=== PATIENT | male | born 1935 | race Two or more races ===

== ENCOUNTER 2020-10-11 09:03 | Inpatient (IN) | payer OTHER ==
[~2020-10-11] VITALS: Ht 175.3 cm; Wt 84.4 kg
--- NOTE | 2020-10-11 09:03 | NUR ---
PT MYRON 89 FROM [facility]. C/O AGGRESSIVE BEHAVIOR TOWARDS STAFF. PT IS AAOX4, NOT IN RESPIRATORY DISTRESS, V/S STABLE, KEPT RESTED AND COMFORTABLE. WILL CONTINUE TO MONITOR.
--- NOTE | 2020-10-11 09:17 | NUR ---
PT SEEN AND EXAMINED BY .
[2020-10-11] MEDS ORDERED: OLANZAPINE 5 MG TABLET ONE (09:27)
[2020-10-11] MEDS ORDERED: OLANZAPINE 5 MG TABLET PO ONE (09:30)
[2020-10-11 10:15] LABS: BASOPHILS # (AUTO) 0.1 /CMM (0.0-0.2); BASOPHILS % (AUTO) 1.5 % (0.0-2.0); EOSINOPHILS % (AUTO) 7.7 % (0.0-6.0); HEMATOCRIT 37 % (39-51); HEMOGLOBIN 12.1 g/dL (13.5-17.5); LYMPHOCYTES # (AUTO) 1.4 /CMM (0.8-4.8); LYMPHOCYTES % (AUTO) 30.6 % (20.0-44.0); MEAN CORPUSCULAR HGB CONC 33 g/dl (31.0-36.0); MEAN CORPUSCULAR VOLUME 96 fL (80-96); MONOCYTES # (AUTO) 0.4 /CMM (0.1-1.30); MONOCYTES % (AUTO) 9.8 % (2.0-12.0); NEUTROPHILS # (AUTO) 2.3 /CMM (1.8-8.9); NEUTROPHILS % (AUTO) 50.4 % (43.0-81.0); PLATELET COUNT (AUTO) 185 /CMM (150-450); RED BLOOD CELL COUNT(AUTO) 3.83 MIL/uL (4.5-6.0); WHITE BLOOD COUNT (AUTO) 4.5 K/uL (4.3-11.0)
[2020-10-11 10:22] LABS: CALCIUM, SERUM 9.8 mg/dL (8.5-10.1); CARBON DIOXIDE 31 mmol/L (21-32); CHLORIDE 107 mmol/L (98-107); CREATININE 0.9 mg/dL (0.6-1.3); GLUCOSE 98 mg/dL (74-106); POTASSIUM 4.4 mmol/L (3.5-5.1); SODIUM SERUM 144 mmol/L (136-145); UREA NITROGEN, BLOOD 20 mg/dL (7-18)
[2020-10-11 10:28] LABS: ALANINE AMINOTRANSFERASE 20 U/L (12-78); ALBUMIN 3.3 g/dL (3.4-5.0); ALCOHOL, BLOOD < 3 mg/dL (0-0); ALKALINE PHOSPHATASE 74 U/L (46-116); ASPARTATE AMINOTRANSFERASE 35 U/L (15-37); BILIRUBIN,DIRECT 0.2 mg/dL (0.0-0.2); BILIRUBIN,TOTAL 0.8 mg/dL (0.2-1.0); TOTAL PROTEIN, SERUM 7.7 g/dL (6.4-8.2)
[2020-10-11 10:33] LABS: ACETAMINOPHEN 0 ug/ml (10-30)
[2020-10-11] MEDS ORDERED: HYDR-500 PO (10:51)
[2020-10-11] MEDS ORDERED: QUET25TA PO (10:51)
--- NOTE | 2020-10-11 11:00 | NUR ---
URINE SAMPLE COLLECTED AND SENT TO LAB
[2020-10-11 11:46] LABS: BILIRUBIN,URINE SMALL (NEGATIVE); COLOR,URINE DARK YELLOW (YELLOW); LEUKOCYTE ESTERASE ,URINE NEGATIVE (NEGATIVE); NITRITE, URINE NEGATIVE (NEGATIVE); PH,URINE 6.5 (5.0-8.0); PROTEIN,URINE NEGATIVE (NEGATIVE); UGLUCOSE NEGATIVE (NEGATIVE)
[2020-10-11] MEDS ORDERED: CALC0.253 PO (12:10)
[2020-10-11] MEDS ORDERED: FINA5TAB11 PO (12:10)
[2020-10-11] MEDS ORDERED: IBUP-1953 PO (12:10)
[2020-10-11] MEDS ORDERED: OMEP20CA15 PO (12:10)
[2020-10-11] MEDS ORDERED: ASPI-1169 PO (12:10)
[2020-10-11] MEDS ORDERED: DONE10TA44 PO (12:10)
[2020-10-11] MEDS ORDERED: FURO-145 PO (12:10)
[2020-10-11] MEDS ORDERED: LISI2.5T2 PO (12:10)
[2020-10-11] MEDS ORDERED: GABA-532 PO (12:10)
[2020-10-11] MEDS ORDERED: DOCU-141 PO (12:10)
[2020-10-11] MEDS ORDERED: PHEN26CR2 RC (12:10)
--- NOTE | 2020-10-11 12:21 | NUR ---
ANDREA SHOEMAKER [phone]
[2020-10-11 12:29] LABS: BACTERIA,URINE Rare /HPF (None Seen); CALCIUM OXALATE CRYSTALS,UR Moderate /HPF (None Seen); MUCUS,URINE Moderate /LPF (None Seen); SQUAMOUS EPITHELIAL CELL,UR Rare /HPF (None Seen)
--- NOTE | 2020-10-11 12:36 | NUR ---
GOING TO [facility]
--- NOTE | 2020-10-11 13:05 | NUR ---
RAPID COVID SWAB DONE AND SENT TO LAB
--- NOTE | 2020-10-11 13:12 | NUR ---
PLANT OPERATOR/SHIFT SUPERVISOR PURA BAUMAN AT BEDSIDE
--- NOTE | 2020-10-11 13:45 | NUR ---
PLACED ON 5150 HOLD BY PURA LATHAM FOR DTO AND GRAVELY DISABLED
--- NOTE | 2020-10-11 14:04 | NUR ---
RECEIVED RESULT FROM MAIN LAB: RAPID COVID NEGATIVE
--- NOTE | 2020-10-11 14:40 | NUR ---
REPORT GIVEN TO AIDA AU OF [facility]
[2020-10-11 16:00] VITALS: BP 154/96
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
[2020-10-11] MEDS ORDERED: BLOOD SUGAR DIAGNOSTIC 1 EACH STRIP IN ONE (16:30)
[2020-10-11] MEDS ORDERED: clonazePAM 0.5 MG TABLET PO PRN (16:30)
[2020-10-11] MEDS ORDERED: MAGNESIUM HYDROXIDE 30 ML UDC PO PRN (16:30)
[2020-10-11] MEDS ORDERED: ACETAMINOPHEN 325 MG TABLET PO PRN (16:30)
[2020-10-11] MEDS ORDERED: MAG HYDROX/AL HYDROX/SIMETH 30 ML UDC PO PRN (16:30)
--- NOTE | 2020-10-11 18:15 | NUR ---
RN NOTES PT AWAKE, SITTING IN BED, ALERT AND ABLE TO MAKE NEEDS KNOWN, MEDICATIONS GIVEN ORDERED, ATE DINNER, WITH GOOD APPETITE, CALM AT THIS TIME, NEEDS ATTENDED.
[2020-10-11 20:15] VITALS: BP 126/75
[2020-10-11 20:21] VITALS: BP 126/73
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
[2020-10-11] MEDS: GABAPENTIN 100 MG CAPSULE PO SCH (23:30)
--- NOTE | 2020-10-11 23:44 | NUR ---
CALLED [facility] & REQUESTED TO VERIFY ALL RECONCILED MEDS
--- NOTE | 2020-10-12 00:11 | NUR ---
RN NOTE: REFUSED GABAPENTIN PATIENT REFUSED GABAPENTIN 300 MG SCHEDULED DESPITE OF RISKS & BENEFITS EXPLANATIONS & PATIENT INFORMED THE NURSE NOT TO BOTHER HIM WHILE HE IS ASLEEP OR TRYING TO ASLEEP. CONTINUING TO MONITOR.
--- NOTE | 2020-10-12 02:30 | NUR ---
RN NOTE: PATIENT IS SLEEPING INTERMITTENTLY, RESTORIL WAS TAKEN OUT & OFFERED TO THE PT FOR INSOMNIA, BUT PATIENT STATED," I AM DOING OK, I DON'T NEED ANYTHING RIGHT NOW," PATIENT IS IN BED & WILL CONTINUE TO MONITOR.
[2020-10-12 07:27] LABS: CHOLESTEROL 168 mg/dL (<200); HDL CHOLESTEROL 77 mg/dL (40-60); LDL 84 mg/dL (0-99); TRIGLYCERIDES 47 mg/dL (30-150)
[2020-10-12] MEDS ORDERED: OMEPRAZOLE 20 MG CAPSULE.DR PO SCH (07:30)
[2020-10-12 07:49] LABS: ALBUMIN 3.3 g/dL (3.4-5.0); BILIRUBIN,TOTAL 0.7 mg/dL (0.2-1.0); CALCIUM, SERUM 9.6 mg/dL (8.5-10.1); CREATININE 0.8 mg/dL (0.6-1.3); POTASSIUM 4.1 mmol/L (3.5-5.1); TOTAL PROTEIN, SERUM 7.8 g/dL (6.4-8.2)
[2020-10-12 08:00] VITALS: BP 137/73
[2020-10-12] MEDS: ASPIRIN 81 MG TAB.CHEW PO SCH (08:48)
[2020-10-12] MEDS: FINASTERIDE (5 MG) 5 MG TABLET PO SCH (08:48)
[2020-10-12] MEDS: DOCUSATE SODIUM 100 MG CAPSULE PO SCH (08:48)
[2020-10-12] MEDS: GABAPENTIN 100 MG CAPSULE PO SCH ×3 (08:48→16:09)
[2020-10-12] MEDS: LISINOPRIL (5MG) 5 MG TABLET PO SCH (08:48)
[2020-10-12] MEDS: FUROSEMIDE 20 MG TABLET PO SCH (08:48)
[2020-10-12] MEDS: CALCITRIOL 0.25 MCG CAPSULE PO SCH (08:49)
[2020-10-12] MEDS: PANTOPRAZOLE 40 MG TABLET.DR PO SCH (11:50)
[2020-10-12] MEDS: QUETIAPINE FUMARATE 25 MG TABLET PO SCH ×2 (11:50→16:09)
[2020-10-12 16:00] VITALS: BP 118/66
[2020-10-12 20:01] VITALS: BP 115/66
[2020-10-12 20:02] VITALS: BP 115/66
--- NOTE | 2020-10-12 20:32 | NUR ---
RN NOTE SNACK GIVEN TO THE PATIENT & TOLERATED WELL.
[2020-10-12] MEDS: DONEPEZIL 5 MG TABLET PO SCH (21:37)
[2020-10-13 08:00] VITALS: BP 137/74
[2020-10-13] MEDS: PANTOPRAZOLE 40 MG TABLET.DR PO SCH (08:02)
[2020-10-13] MEDS: ASPIRIN 81 MG TAB.CHEW PO SCH (08:24)
[2020-10-13] MEDS: LISINOPRIL (5MG) 5 MG TABLET PO SCH (08:24)
[2020-10-13] MEDS: FINASTERIDE (5 MG) 5 MG TABLET PO SCH (08:24)
[2020-10-13] MEDS: QUETIAPINE FUMARATE 25 MG TABLET PO SCH ×2 (08:24→16:43)
[2020-10-13] MEDS: GABAPENTIN 100 MG CAPSULE PO SCH ×3 (08:24→16:43)
[2020-10-13] MEDS: DOCUSATE SODIUM 100 MG CAPSULE PO SCH (08:24)
[2020-10-13] MEDS: CALCITRIOL 0.25 MCG CAPSULE PO SCH (08:28)
[2020-10-13] MEDS: FUROSEMIDE 20 MG TABLET PO SCH (08:42)
[2020-10-13 16:00] VITALS: BP 103/61
--- NOTE | 2020-10-13 16:15 | NUR ---
Phone call: SW spoke to the (Carlos Ash -[phone]) regarding the pt and discharge plan. The would like the pt return back home once medically discharged from the hospital. Plan: SW will follow up as needed
--- NOTE | 2020-10-13 16:29 | NUR ---
Initial Discharge Plan: Pt currently resides at [facility], [address] [place] [address], [place], [address] [phone]). Pt has stated he would like to be discharged back to home with the at [address] [place] [address] [address], [place]. [address]. SW also spoke with the (Josselyn Ash, ) and she would like the pt to return to the house. SW will discharge back to current living. FALGUNI will work with the pt and the MD appropriate discharged planning. SW will form a safe and proper discharge plan.
[2020-10-13 20:20] VITALS: BP 100/62
[2020-10-13] MEDS: DONEPEZIL 5 MG TABLET PO SCH (21:23)
[2020-10-14 08:00] VITALS: BP 123/68
[2020-10-14] MEDS: PANTOPRAZOLE 40 MG TABLET.DR PO SCH (08:11)
[2020-10-14] MEDS: LISINOPRIL (5MG) 5 MG TABLET PO SCH (08:28)
[2020-10-14] MEDS: QUETIAPINE FUMARATE 25 MG TABLET PO SCH ×2 (08:28→16:49)
[2020-10-14] MEDS: GABAPENTIN 100 MG CAPSULE PO SCH ×3 (08:28→16:49)
[2020-10-14] MEDS: FINASTERIDE (5 MG) 5 MG TABLET PO SCH (08:28)
[2020-10-14] MEDS: DOCUSATE SODIUM 100 MG CAPSULE PO SCH (08:28)
[2020-10-14] MEDS: FUROSEMIDE 20 MG TABLET PO SCH (08:28)
[2020-10-14] MEDS: ASPIRIN 81 MG TAB.CHEW PO SCH (08:28)
[2020-10-14] MEDS: CALCITRIOL 0.25 MCG CAPSULE PO SCH (12:20)
[2020-10-14 16:00] VITALS: BP 120/61
[2020-10-14 20:00] VITALS: BP 116/58
[2020-10-14] MEDS: DONEPEZIL 5 MG TABLET PO SCH (21:46)
[2020-10-14] MEDS: QUETIAPINE FUMARATE 100 MG TABLET PO SCH (21:46)
[2020-10-14] MEDS: TEMAZEPAM 7.5 MG CAPSULE PO PRN (22:47)
[2020-10-15] MEDS: PANTOPRAZOLE 40 MG TABLET.DR PO SCH (07:59)
[2020-10-15 08:00] VITALS: BP 112/70
[2020-10-15] MEDS: QUETIAPINE FUMARATE 25 MG TABLET PO SCH ×2 (08:00→16:33)
[2020-10-15] MEDS: DOCUSATE SODIUM 100 MG CAPSULE PO SCH (08:00)
[2020-10-15] MEDS: ASPIRIN 81 MG TAB.CHEW PO SCH (08:00)
[2020-10-15] MEDS: FUROSEMIDE 20 MG TABLET PO SCH (08:00)
[2020-10-15] MEDS: FINASTERIDE (5 MG) 5 MG TABLET PO SCH (08:00)
[2020-10-15] MEDS: GABAPENTIN 100 MG CAPSULE PO SCH ×3 (08:00→16:32)
[2020-10-15] MEDS: LISINOPRIL (5MG) 5 MG TABLET PO SCH (08:01)
[2020-10-15] MEDS: CALCITRIOL 0.25 MCG CAPSULE PO SCH (08:07)
[2020-10-15 16:00] VITALS: BP 108/70
[2020-10-15 20:15] VITALS: BP 152/86
[2020-10-15] MEDS: DONEPEZIL 5 MG TABLET PO SCH (22:31)
[2020-10-15] MEDS: QUETIAPINE FUMARATE 100 MG TABLET PO SCH (22:31)
[2020-10-15] MEDS: TEMAZEPAM 7.5 MG CAPSULE PO PRN (22:35)
--- NOTE | 2020-10-15 22:36 | NUR ---
[facility]PS RN NOTES: PATIENT REQUESTED FOR SLEEP MEDICATION D/T INSOMNIA. RESTORIL 7.5MG/1TAB GIVEN PO PRN ORDERED. WILL CONTINUE TO MONITOR.
--- NOTE | 2020-10-16 06:40 | NUR ---
[facility] RN CLOSING NOTES: PATIENT IS CURRENTLY SLEEPING. SLEPT 7HRS THIS SHIFT. NO BEHAVIORAL ISSUES THIS SHIFT. NO S/S OF DISTRESS. RESPIRATION EVEN AND UNLABORED WITH EQUAL RISE AND FALL OF THE CHEST ON ROOM AIR. ALL PATIENT CARE NEEDS HAVE BEEN MET ANTICIPATED. WILL CONTINUE TO MONITOR FOR SAFETY, MOOD AND BEHAVIOR AND ENDORSE TO AM SHIFT.
[2020-10-16 08:00] VITALS: BP 104/52
[2020-10-16] MEDS: GABAPENTIN 100 MG CAPSULE PO SCH ×3 (09:21→17:19)
[2020-10-16] MEDS: ASPIRIN 81 MG TAB.CHEW PO SCH (09:22)
[2020-10-16] MEDS: FUROSEMIDE 20 MG TABLET PO SCH (09:22)
[2020-10-16] MEDS: QUETIAPINE FUMARATE 25 MG TABLET PO SCH ×2 (09:22→17:18)
[2020-10-16] MEDS: DOCUSATE SODIUM 100 MG CAPSULE PO SCH (09:22)
[2020-10-16] MEDS: PANTOPRAZOLE 40 MG TABLET.DR PO SCH (09:22)
[2020-10-16] MEDS: FINASTERIDE (5 MG) 5 MG TABLET PO SCH (09:23)
[2020-10-16] MEDS: LISINOPRIL (5MG) 5 MG TABLET PO SCH (09:23)
[2020-10-16] MEDS: CALCITRIOL 0.25 MCG CAPSULE PO SCH (09:24)
[2020-10-16 16:00] VITALS: BP 108/70
--- NOTE | 2020-10-16 18:00 | NUR ---
quiet,isolative and med compliant.
[2020-10-16] MEDS: POLYVINYL ALCOHOL 15 ML BOTTLE EACHEYE PRN (19:04)
--- NOTE | 2020-10-16 19:04 | NUR ---
rn administered clear eyes for his dry eyes.
[2020-10-16 19:54] VITALS: BP 109/67
[2020-10-16] MEDS: DONEPEZIL 5 MG TABLET PO SCH (21:52)
[2020-10-16] MEDS: QUETIAPINE FUMARATE 100 MG TABLET PO SCH (21:55)
[2020-10-16] MEDS: TEMAZEPAM 7.5 MG CAPSULE PO PRN (23:10)
--- NOTE | 2020-10-17 06:32 | NUR ---
[facility] RN CLOSING NOTES: PATIENT AWAKE, ALERT AND ORIENTED X2. AMBULATING IN HALLWAY. SLEPT 4HRS THIS SHIFT. NO BEHAVIORAL ISSUES THIS SHIFT. MEDICATION COMPLIANT. NO S/S OF DISTRESS. RESPIRATION EVEN AND UNLABORED WITH EQUAL RISE AND FALL OF THE CHEST ON ROOM AIR. ALL PATIENT CARE NEEDS HAVE BEEN MET ANTICIPATED. WILL CONTINUE TO MONITOR FOR SAFETY, MOOD AND BEHAVIOR AND ENDORSE TO AM SHIFT.
[2020-10-17] MEDS: PANTOPRAZOLE 40 MG TABLET.DR PO SCH (07:30)
[2020-10-17 08:00] VITALS: BP 136/88
[2020-10-17] MEDS: CALCITRIOL 0.25 MCG CAPSULE PO SCH (09:29)
[2020-10-17] MEDS: DOCUSATE SODIUM 100 MG CAPSULE PO SCH (09:29)
[2020-10-17] MEDS: GABAPENTIN 100 MG CAPSULE PO SCH ×3 (09:29→16:13)
[2020-10-17] MEDS: ASPIRIN 81 MG TAB.CHEW PO SCH (09:29)
[2020-10-17] MEDS: FUROSEMIDE 20 MG TABLET PO SCH (09:30)
[2020-10-17] MEDS: QUETIAPINE FUMARATE 25 MG TABLET PO SCH ×2 (09:30→16:13)
[2020-10-17] MEDS: LISINOPRIL (5MG) 5 MG TABLET PO SCH (09:31)
[2020-10-17] MEDS: FINASTERIDE (5 MG) 5 MG TABLET PO SCH (09:31)
[2020-10-17 16:00] VITALS: BP 116/83
[2020-10-17 20:48] VITALS: BP 133/80
[2020-10-17] MEDS: QUETIAPINE FUMARATE 100 MG TABLET PO SCH (21:31)
[2020-10-17] MEDS: DONEPEZIL 5 MG TABLET PO SCH (21:31)
--- NOTE | 2020-10-18 06:31 | NUR ---
[facility] RN CLOSING NOTES: PATIENT AWAKE, ALERT AND ORIENTED X2. REFUSED WEEKLY SKIN ASSESSMENT, PER PATIENT HIS SKIN IS GOOD. PATIENT SLEPT 7HRS THIS SHIFT. NO BEHAVIORAL ISSUES THIS SHIFT. MEDICATION COMPLIANT. NO S/S OF DISTRESS. RESPIRATION EVEN AND UNLABORED WITH EQUAL RISE AND FALL OF THE CHEST ON ROOM AIR. ALL PATIENT CARE NEEDS HAVE BEEN MET ANTICIPATED. WILL CONTINUE TO MONITOR FOR SAFETY, MOOD AND BEHAVIOR AND ENDORSE TO AM SHIFT.
[2020-10-18] MEDS: PANTOPRAZOLE 40 MG TABLET.DR PO SCH (07:50)
[2020-10-18 08:00] VITALS: BP 114/61
[2020-10-18] MEDS: ASPIRIN 81 MG TAB.CHEW PO SCH (08:25)
[2020-10-18] MEDS: LISINOPRIL (5MG) 5 MG TABLET PO SCH (08:25)
[2020-10-18] MEDS: GABAPENTIN 100 MG CAPSULE PO SCH ×3 (08:25→16:18)
[2020-10-18] MEDS: DOCUSATE SODIUM 100 MG CAPSULE PO SCH (08:25)
[2020-10-18] MEDS: QUETIAPINE FUMARATE 25 MG TABLET PO SCH ×2 (08:26→16:18)
[2020-10-18] MEDS: FINASTERIDE (5 MG) 5 MG TABLET PO SCH (08:26)
[2020-10-18] MEDS: FUROSEMIDE 20 MG TABLET PO SCH (08:26)
[2020-10-18] MEDS: CALCITRIOL 0.25 MCG CAPSULE PO SCH (08:49)
--- NOTE | 2020-10-18 11:41 | NUR ---
Family Contact: SW spoke with pts , Josselyn Ash ([phone]), who stated that she wanted to know when the pt was going to be discharged and the SW explained the probable cause hearing and informed her that the SW will call her back after the hearing because that will determine whether or not the pt will be discharged today.
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
--- NOTE | 2020-10-18 12:49 | NUR ---
Probable Cause Hearing: Pts 5250 hold was upheld for grave disability.
--- NOTE | 2020-10-18 13:20 | NUR ---
Family Contact: SW called the pts , Josselyn Ash ([phone]), and informed her that the pts hearing was upheld and as soon as the pt has a discharge date she will be informed.
--- NOTE | 2020-10-18 15:37 | NUR ---
Family Contact: FALGUNI called the pts , Josselyn Ash ([phone]), and informed her that the pt will be discharged back home on . Pts stated that she does not drive and they do not have anyone to pick him up. SW stated that she will call her back to arrange the discharge on Sunday through [facility].
[2020-10-18 16:00] VITALS: BP 104/61
[2020-10-18] MEDS: IBUPROFEN 400 MG TABLET PO PRN (21:11)
--- NOTE | 2020-10-18 21:11 | NUR ---
[facility]PS-RN NOTES: PATIENT C/O TOOTHACHE. ADMINISTERED MOTRIN 400MG PO ORDERED. WILL CONTINUE TO REASSESS.
[2020-10-18] MEDS: QUETIAPINE FUMARATE 100 MG TABLET PO SCH (21:12)
[2020-10-18] MEDS: DONEPEZIL 5 MG TABLET PO SCH (21:12)
[2020-10-18 21:28] VITALS: BP 114/65
[2020-10-19] MEDS: PANTOPRAZOLE 40 MG TABLET.DR PO SCH (07:44)
[2020-10-19 08:00] VITALS: BP 144/54
[2020-10-19] MEDS: LISINOPRIL (5MG) 5 MG TABLET PO SCH (08:19)
[2020-10-19] MEDS: GABAPENTIN 100 MG CAPSULE PO SCH ×3 (08:19→16:21)
[2020-10-19] MEDS: DOCUSATE SODIUM 100 MG CAPSULE PO SCH (08:19)
[2020-10-19] MEDS: QUETIAPINE FUMARATE 25 MG TABLET PO SCH ×2 (08:19→16:21)
[2020-10-19] MEDS: FINASTERIDE (5 MG) 5 MG TABLET PO SCH (08:19)
[2020-10-19] MEDS: ASPIRIN 81 MG TAB.CHEW PO SCH (08:20)
[2020-10-19] MEDS: FUROSEMIDE 20 MG TABLET PO SCH (08:20)
[2020-10-19] MEDS: CALCITRIOL 0.25 MCG CAPSULE PO SCH (08:23)
--- NOTE | 2020-10-19 10:30 | NUR ---
Individual Intervention: SW informed the the pt that he is going to be discharged back to his home with his on and the pt expressed his happiness.
--- NOTE | 2020-10-19 11:03 | NUR ---
Family Contact: SW spoke with pts , Josselyn Ash ([phone]), and informed her that the pt took the news of his upcoming discharge well and that the SW will arrange transportation for the pt and will keep the pts informed.
[2020-10-19 16:00] VITALS: BP 119/60
[2020-10-19 21:11] VITALS: BP 99/63
[2020-10-19] MEDS: DONEPEZIL 5 MG TABLET PO SCH (21:44)
[2020-10-19] MEDS: IBUPROFEN 400 MG TABLET PO PRN (22:12)
[2020-10-19] MEDS: QUETIAPINE FUMARATE 100 MG TABLET PO SCH (22:12)
[2020-10-20] MEDS: PANTOPRAZOLE 40 MG TABLET.DR PO SCH (07:42)
[2020-10-20 08:00] VITALS: BP 126/68
[2020-10-20] MEDS: GABAPENTIN 100 MG CAPSULE PO SCH ×3 (08:20→16:22)
[2020-10-20] MEDS: QUETIAPINE FUMARATE 25 MG TABLET PO SCH ×2 (08:20→16:22)
[2020-10-20] MEDS: CALCITRIOL 0.25 MCG CAPSULE PO SCH (08:20)
[2020-10-20] MEDS: ASPIRIN 81 MG TAB.CHEW PO SCH (08:20)
[2020-10-20] MEDS: LISINOPRIL (5MG) 5 MG TABLET PO SCH (08:20)
[2020-10-20] MEDS: FINASTERIDE (5 MG) 5 MG TABLET PO SCH (08:21)
[2020-10-20] MEDS: FUROSEMIDE 20 MG TABLET PO SCH (08:21)
[2020-10-20] MEDS: DOCUSATE SODIUM 100 MG CAPSULE PO SCH (08:22)
--- NOTE | 2020-10-20 10:36 | NUR ---
Cat Contact: FALGUNI called Cat ([phone]) and spoke to Olive who stated that the trip for the pt to return to his home would be $226.
--- NOTE | 2020-10-20 10:37 | NUR ---
Family Contact: SW spoke with pts , Josselyn Ash ([phone]), and informed her that [facility] would cost $226 and the pts stated that she could not afford that and became emotional. SW stated that she would speak with her supervisor pumping station and provide an alternate option.
--- NOTE | 2020-10-20 12:47 | NUR ---
UR Note: FALGUNI faxed a clinical to [facility] to the fax number: [phone].
[2020-10-20] MEDS: POLYVINYL ALCOHOL 15 ML BOTTLE EACHEYE PRN (14:28)
--- NOTE | 2020-10-20 14:29 | NUR ---
RN NOTE- PT W C/O DRY EYES AND IRRITATION. CLEAR EYES INSTILLED ONE GTT TO OU.
--- NOTE | 2020-10-20 15:29 | NUR ---
Family Contact: FALGUNI spoke with pts , Josselyn Ash ([phone]), and informed her that the pt is going to be discharged around 3-3:30pm and that the hospital will finance the non emergency hospital transport.
--- NOTE | 2020-10-20 15:29 | NUR ---
UR Note: Aissatou ([phone]), from [facility], called the SW and stated that she received the clinical and that the pt will be authorized through today which allows the pt to be discharged tomorrow. SW stated that she will call the following day with the clinical and was informed that the SW can find providers on [email or web address].
[2020-10-20 16:00] VITALS: BP 109/68
--- NOTE | 2020-10-20 16:20 | NUR ---
Hospice Contact: FALGUNI received a call from Shalonda from [facility] ([phone]) who stated that she is requesting an MD order to reinstate hospice services for the pt when he is discharged bach home. Shalonda stated that she wanted the order to be faxed to [phone].
[2020-10-20 20:46] VITALS: BP 112/61
[2020-10-20] MEDS: DONEPEZIL 5 MG TABLET PO SCH (21:32)
[2020-10-20] MEDS: QUETIAPINE FUMARATE 100 MG TABLET PO SCH (21:32)
[2020-10-21 08:00] VITALS: BP 144/84
[2020-10-21] MEDS: FINASTERIDE (5 MG) 5 MG TABLET PO SCH (08:26)
[2020-10-21] MEDS: CALCITRIOL 0.25 MCG CAPSULE PO SCH (08:26)
[2020-10-21] MEDS: QUETIAPINE FUMARATE 25 MG TABLET PO SCH (08:26)
[2020-10-21] MEDS: PANTOPRAZOLE 40 MG TABLET.DR PO SCH (08:26)
[2020-10-21] MEDS: ASPIRIN 81 MG TAB.CHEW PO SCH (08:26)
[2020-10-21] MEDS: DOCUSATE SODIUM 100 MG CAPSULE PO SCH (08:26)
[2020-10-21 08:27] VITALS: BP 144/84
[2020-10-21] MEDS: GABAPENTIN 100 MG CAPSULE PO SCH ×2 (08:27→13:47)
[2020-10-21] MEDS: FUROSEMIDE 20 MG TABLET PO SCH (08:27)
[2020-10-21] MEDS: LISINOPRIL (5MG) 5 MG TABLET PO SCH (08:27)
--- NOTE | 2020-10-21 10:53 | NUR ---
Family Contact: SW spoke with pts , Josselyn Ash ([phone]), and informed her that the pt is going to be discharged and that his prescriptions would need to be picked up. Pts stated that she cannot go and car pick up driver the medications and so she asked the SW to call the pts hospice to assist.
--- NOTE | 2020-10-21 10:59 | NUR ---
Hospice Contact: FALGUNI called Shalonda from [facility] ([phone]) and informed her that the pts prescriptions will need to be picked up because the cannot. Shalonda stated that first her staff will need to do an assessment and then reach out to the insurance company and go from there. FALGUNI stated that she will send the order and the prescriptions as soon as she can.
--- NOTE | 2020-10-21 11:28 | NUR ---
gave an order to D/C hold and D/C home and to follow up with psych and medical doctors.
--- NOTE | 2020-10-21 15:20 | NUR ---
Discharge Note: Pt will be discharged back to his home [address] at [address] [place] [address]. Pt will be transported via [facility] at 3pm. Pts , Josselyn ([phone]), has been informed of this discharge. Upon discharge, pt appears to be in a dysphoric mood and presents with a guarded affect. Pt denies suicidal and homicidal ideation and denies visual and auditory hallucinations. Pt appears to be alert and oriented x3 (time, place, and self). Pt appears to be well groomed and ambulatory with an unsteady gait. Pt was referred to be under the care of psychiatrist, Dr. Bagley, located at [address] [place] [id number]; and a fax of records was sent to: . Pt will also referred to be under the care of citrus peeler, Dr. Morales, located at [address] [place] [address]; and fax: . The multidisciplinary exit care form was done, printed, signed, and given to the patient.
--- NOTE | 2020-10-21 15:45 | NUR ---
GPS/RN-DISCHARGE NOTES PATIENT DISCHARGE TO HOME WITH HOSPICE CARE. DR. BONDS AND DR. FRITZ AWARE OF THE DISCHARGE WITH ORDERS. PATIENT A/O X3 AMBULATORY WITH STEADY GAIT. OFFERED FLU VACCINE PRIOR TO DISCHARGE BUT PATIENT STRONGLY REFUSED.ALSO PATIENT REFUSE FULL BODY ASSESSMENT PRIOR TO DISCHARGE DESPITE EXPLANATIONS OF HOSPITAL POLICIES. STATED" NOTHING WRONG WITH MY SKIN ".PATIENT DID NOT VERBALIZE SI/HI,DENIES VISUAL/AUDITORY HALLUCINATIONS AT THE TIME OF DISCHARGE. HE ALSO REFUSED TO SIGN DISCHARGE PAPERS. VITAL SIGNS FOLLOWS BP 106/62 ,P 63, T97.7, R 18 AN O2 SAT.99% RA. PATIENT WAS WELDER EXPLOSION BY [facility]. ALL BELONGINGS WAS GIVEN BACK TO THE PATIENT. GEORGETTE WAS AWARE OF THE DISCHARGE.
== END 2020-10-21 15:00 | disposition hospice, home (50) | DRG 885 ==
LOC: ER 09:15 → GPS 16:01
PROVIDERS: ADMIT Psychiatry & Neurology Psychiatry; ATTEND Student in an Organized Health Care Education/Training Program
DX: F31.89 Other bipolar disorder (principal); F29 Unspecified psychosis not due to a substance or known physiological condition; F41.9 Anxiety disorder, unspecified; F03.90 Unspecified dementia, unspecified severity, without behavioral disturbance, psychotic disturbance, mood disturbance, and anxiety; D64.9 Anemia, unspecified; Z20.822 Contact with and (suspected) exposure to COVID-19; Z73.6 Limitation of activities due to disability
CPT/HCPCS: 36415; 80048-TC; 80053-TC; 80061-TC; 80076-TC; 81001; 82962-TC; 84443-TC; 85025-TC; 87081-TC; C9803; G0480